=== PATIENT | male | born 1960 | race Caucasian/White ===

== ENCOUNTER 2016-11-27 09:24 | Inpatient (IN) | payer MEDICARE ==
[~2016-11-27] VITALS: Ht 185.4 cm; Wt 100.4 kg
[~2016-11-27 09:24] MED LIST: ASPIRIN CHEWABL81 MG PO; BETAPACE AF80 MG PO; COZAAR 50MG TAB50 MG PO; DILTIAZEM ER300 M1 PO; VALIUM 5 MG TAB5 MG PO
[2016-11-27 10:04] LABS: HEMOGLOBIN 14.8 gm/dl (14.0-17.5); RED BLOOD COUNT 4.94 M/UL (4.20-5.50); WHITE BLOOD COUNT 4.8 K/UL (4.5-11.0)
[2016-11-27 10:31] LABS: BUN/CREATININE RATIO 17 (0-10)
[2016-11-27] MEDS ORDERED: DILTIAZEM IV (23:23)
[2016-11-28] MEDS ORDERED: SOTALOL120 MG PO (00:20)
[2016-11-28] MEDS ORDERED: COZAAR50 MG PO (00:21)
[2016-11-28] MEDS ORDERED: DILTIAZEM 24HR240 MG PO (00:22)
[2016-11-28 04:01] LABS: HEMOGLOBIN 14.6 gm/dl (14.0-17.5); RED BLOOD COUNT 4.85 M/UL (4.20-5.50); WHITE BLOOD COUNT 6.9 K/UL (4.5-11.0)
[2016-11-28 04:08] LABS: BUN/CREATININE RATIO 16 (0-10)
[2016-11-30 04:20] LABS: BUN/CREATININE RATIO 20 (0-10)
[2016-12-01] MEDS ORDERED: ELIQUIS5 MG PO (14:29)
[2016-12-01] MEDS ORDERED: ASPIR 8181 MG PO (14:31)
== END 2016-12-01 15:04 | disposition home or self-care (01) | DRG 310 ==
LOC: ER1 09:24 → ZEROF 11:25 → PROG CARE 11:25
PROVIDERS: Emergency Medicine; Hospitalist; ADMIT Family Medicine
PROC: B24BZZ4 Ultrasonography of Heart with Aorta, Transesophageal (ICD-10-PCS; principal; 2016-12-01)
DX: I48.0 Paroxysmal atrial fibrillation (principal); E78.5 Hyperlipidemia, unspecified; I10 Essential (primary) hypertension; F41.9 Anxiety disorder, unspecified; I95.9 Hypotension, unspecified; Z79.899 Other long term (current) drug therapy; Z82.49 Family history of ischemic heart disease and other diseases of the circulatory system
CPT/HCPCS: 36415; 71010; 80048; 80053; 82550; 82553; 83735; 83874; 84439; 84443; 84484; 85025; 85027; 85610; 85730; 92960; 93005; 93312; 93320; 96374; 99285; G0378; J1160; J1650; J2250; J3010; J7030

== ENCOUNTER 2016-12-07 09:40 | Emergency (ER) | payer MEDICARE ==
[~2016-12-07 09:40] MED LIST changes: +ASPIR 8181 MG PO; +COZAAR50 MG PO; +DILTIAZEM 24HR240 MG PO; +DILTIAZEM IV; +ELIQUIS5 MG PO; +SOTALOL120 MG PO
[2016-12-07 10:23] LABS: HEMOGLOBIN 15.6 gm/dl (14.0-17.5); RED BLOOD COUNT 5.12 M/UL (4.20-5.50); WHITE BLOOD COUNT 5.6 K/UL (4.5-11.0)
[2016-12-07 11:02] LABS: BUN/CREATININE RATIO 17 (0-10)
== END 2016-12-07 14:53 | disposition home or self-care (01) ==
LOC: ER1 09:40
PROVIDERS: Emergency Medicine
DX: I48.2 Chronic atrial fibrillation (principal); I10 Essential (primary) hypertension; I48.91 Unspecified atrial fibrillation; Z79.01 Long term (current) use of anticoagulants; Z79.82 Long term (current) use of aspirin; Z79.899 Other long term (current) drug therapy
CPT/HCPCS: 36415; 71010; 80053; 82550; 82553; 83874; 84443; 84484; 85025; 85610; 85730; 93005; 96365; 96366; 99285